=== PATIENT | female | born 1955 | race Caucasian/White ===

== ENCOUNTER → 2020-01-20 09:56 | Outpatient (CLI) | payer MEDICARE, OTHER, SELFPAY ==
[2020-01-20 10:44] LABS: Bacteria Urine None Seen
[2020-01-20 12:41] LABS: Add Manual Diff / Slide Review NO; Basophils Absolute Auto 0 /uL (0-100); Basophils Percent Auto 0.9 % (0-2); Eosinophils Absolute Auto 100 /uL (0-450); Eosinophils Percent Auto 1.4 % (2-4); Hematocrit 42.6 % (36-46); Hemoglobin 14.5 g/dL (12.0-16.0); Lymphocytes Absolute Auto 1300 /uL (1100-4500); Lymphocytes Percent Auto 31.9 % (25-40); Mean Corpuscular Hemoglobin 30.2 PG (26-34); Mean Corpuscular Volume 88.7 fL (80-100); Monocytes Absolute Auto 300 /uL (0-900); Monocytes Percent Auto 7.3 % (3-14); Neutrophils Absolute Auto 2300 /uL (1500-7000); Neutrophils Percent Auto 58.5 % (50-75); Platelet Count 177 X10^3/uL (150-400); Red Cell Distribution Width 13.5 % (11.6-14.8)
[2020-01-20 12:47] LABS: Hemoglobin A1C% w Est Avg Glu 5.6 % (4.0-6.0)
[2020-01-20 13:06] LABS: Appearance Urine UA CLEAR; Bilirubin Urine UA NEGATIVE (NEGATIVE); Color Urine UA YELLOW; Glucose Urine UA NEGATIVE (Negative); Ketones Urine UA NEGATIVE (NEGATIVE); Leukocyte Esterase Urine UA TRACE (NEGATIVE); Nitrite Urine UA NEGATIVE (Negative); Occult Blood Urine UA 1+ (Negative); Protein Urine UA NEGATIVE (Negative); Specific Gravity Urine UA 1.025 (1.000-1.035); Urobilinogen Urine UA 0.2 E.U./dL (0.2)
[2020-01-20 13:12] LABS: Prothrombin Time 11.2 SECONDS (10.1-12.7)
[2020-01-20 13:15] LABS: PTT Partial Thromboplastin Tim 34 SECONDS (26.4-36.2)
[2020-01-20 13:23] LABS: Culture Indicated Urine Specimen Cultured; RBC Urine 1-5/HPF (0-5/HPF); WBC Urine 5-10/HPF (0-5/HPF)
[2020-01-20 13:27] LABS: BUN Creatinine Ratio 22.4 (6-22); Blood Urea Nitrogen 17 mg/dL (7-17); Calcium 9.5 mg/dL (8.4-10.2); Carbon Dioxide 29 mmol/L (22-32); Chloride 109 mmol/L (98-107); Estimated Glomerular Filt Rate > 60.0 mL/min (>60); Glucose 100 mg/dL (80-110); HEMOLYSIS < 15 (0-50); Potassium 4.7 mmol/L (3.4-5.1); Sodium 140 mmol/L (137-145)
== END ==
PROVIDERS: Referring Provider Orthopaedic Surgery; Visit Provider Orthopaedic Surgery
DX: Z01.818 Encounter for other preprocedural examination (principal); Z51.81 Encounter for therapeutic drug level monitoring; R73.9 Hyperglycemia, unspecified; Z01.812 Encounter for preprocedural laboratory examination; N39.0 Urinary tract infection, site not specified
CPT/HCPCS: 36415; 80048; 81001; 83036; 85025; 85610; 85730; 87086; 93005; 93010

== ENCOUNTER → 2020-01-27 16:36 | Outpatient (CLI) | payer MEDICARE, OTHER, SELFPAY ==
[2020-01-27 16:40] LABS: Bacteria Urine None Seen
[2020-01-27 16:51] LABS: Appearance Urine UA CLEAR; Bilirubin Urine UA NEGATIVE (NEGATIVE); Color Urine UA YELLOW; Glucose Urine UA NEGATIVE (Negative); Ketones Urine UA NEGATIVE (NEGATIVE); Leukocyte Esterase Urine UA NEGATIVE (NEGATIVE); Nitrite Urine UA NEGATIVE (Negative); Occult Blood Urine UA TRACE-INTACT (Negative); Protein Urine UA NEGATIVE (Negative); Specific Gravity Urine UA 1.025 (1.000-1.035); Urobilinogen Urine UA 0.2 E.U./dL (0.2)
[2020-01-27 17:00] LABS: pH Urine UA 5.5 (4.5-8.0)
[2020-01-27 17:19] LABS: Culture Indicated Urine Cult Not Indicated; RBC Urine 0-1/HPF (0-5/HPF); Squamous Epithelial Cell Urine 0-1 /HPF (0-5/HPF); WBC Urine 0-1/HPF (0-5/HPF)
== END ==
PROVIDERS: PCP Family Medicine; Referring Provider Family Medicine; Visit Provider Family Medicine
DX: R31.29 Other microscopic hematuria (principal)
CPT/HCPCS: 81001

== ENCOUNTER → 2020-02-06 09:46 | Outpatient (CLI) | payer MEDICARE, OTHER, SELFPAY ==
[2020-02-06 11:05] LABS: COVID19 -Nasal RAPID Negative (Negative)
== END ==
PROVIDERS: PCP Family Medicine; Visit Provider Physician Assistant
DX: Z01.812 Encounter for preprocedural laboratory examination (principal); Z20.828 Contact with and (suspected) exposure to other viral communicable diseases
CPT/HCPCS: 87635; C9803

== ENCOUNTER 2020-02-07 06:04 | Day surgery (SDC) | payer MEDICARE, OTHER, SELFPAY ==
[2020-02-01 08:57] VITALS: BMI 27.3
[2020-02-07] VITALS (11 sets, daily range): BP systolic 100–123; BP diastolic 47–71; PULSE 52–89; RESP 10–18; TEMP 36.2–37.4; O2SAT 93–98; BMI 28.0
--- NOTE | 2020-02-07 | DI.RAD.S_ITS ---
PROCEDURE: XR HIP W PEL IF DONE RT 2V INDICATIONS: RIGHT TOTAL HIP OR TECHNIQUE: AP pelvis with lateral view(s) of the right hip(s). COMPARISON: None. FINDINGS: 7 spot fluoroscopic intraoperative views demonstrating right hip arthroplasty components in expected intraoperative alignment. Dictated by: Filiberto Luther M.D. on 02/07/2020 at 12:57 Approved by: Filiberto Luther M.D. on 02/07/2020 at 12:58
--- NOTE | 2020-02-07 06:00 | DI.RAD.S_ITS ---
PROCEDURE: XR HIP W PEL IF DONE RT 2V INDICATIONS: post op films TECHNIQUE: AP pelvis with lateral view(s) of the right hip(s). COMPARISON: None. FINDINGS: Bones: No fractures or dislocations. Pelvic ring appears intact. No suspicious bony lesions. Expected postoperative alignment of right hip arthroplasty. Soft tissues: The visualized bowel gas pattern is normal. No suspicious soft tissue calcifications. IMPRESSION: Expected postoperative alignment. Dictated by: Filiberto Luther M.D. on 02/07/2020 at 12:27 Approved by: Filiberto Luther M.D. on 02/07/2020 at 12:28
[2020-02-07] MEDS: PREGABALIN 75 MG CAPSULE PO (06:38)
[2020-02-07] MEDS: MELOXICAM 7.5 MG TABLET 15 MG PO (06:39)
[2020-02-07] MEDS: ACETAMINOPHEN 325 MG TABLET 975 MG PO (06:39)
[2020-02-07] MEDS: LACTATED RINGERS 1,000 ML 42 ML IV ×2 (06:55→09:11)
[2020-02-07] MEDS: VANCOMYCIN 1,000 MG/200 ML PIGGYBACK 200 MG IV (06:55)
--- NOTE | 2020-02-07 07:42 | PM.PREOP ---
Pre-operative Note COVID-19 COVID-19 status: Negative Interval Note History & Physical reviewed/Exam performed by Physician: Yes Changes to H&P: No
--- NOTE | 2020-02-07 07:43 | P.OP_ITS ---
Operative Date/Time/Diagnoses Date of procedure: 02/07/20 Time of procedure: 07:57 Pre-op diagnosis: right hip OA Post-op diagnosis: same Procedure & Clinicians Procedure: Right total hip arthroplasty anterior approach Same procedure as scheduled: Yes Indications: The patient has had progressively worsening right hip pain with radiographic changes consistent with arthritis. Non-operative management has failed and the patient has requested total hip replacement. The risks, benefits and alternatives to surgery were discussed with the patient prior to proceeding. Risks discussed included, but were not limited to, failure to relieve pain, leg length discrepancy, dislocation, stiffness, infection, nerve damage, deep venous thrombosis, pulmonary embolism, stroke, coma, heart attack, permanent paralysis and , as well as the potential need for eventual revision of the prosthetic. Surgeon: Cherie Woodruff [employer] Director: Chaim Singleton Anesthesia Type: General and Spinal Operative Notes Findings: Severe right hip osteoarthritis, good stability Closure Type: primary Specimen(s): none sent Prosthetic devices, grafts, tissues, transplants, or devices: [employer]hew 54 R3 cup, +15 screw, size 5 standard offset anthology a, +0 head Estimated Blood Loss (mL): 250 Blood products transfused: none Procedure in detail: The patient was brought to the operating room. Patient was carefully positioned in the supine position. Time-out was performed and antibiotics were given. Anesthesia was induced. She was positioned in the on the table in order to allow hyperextension of the hip. The right lower extremity was prepped and draped in a standard sterile fashion. An anterior right hip incision was made 1 fingerbreadth lateral to the anterior superior iliac spine and extended distally towards the greater trochanter. Dissection was carried out through skin and subcutaneous tissues. The skin and subcutaneous tissues were carefully injected with Lidocaine with epi. Superficial hemostasis was achiev ed. The fascia over the tensor fascia josué was defined and incised with a knife. Two Allis clamps were used to grasp the fascia. Tensor fascia josué was retracted laterally. A gelpi retractor was placed. Dissection was carried out down along the neck. The circumflex vessels were carefully identified and cauterized with the Aqua Mantis. There was good visualization of the femoral neck. A Cobra was placed superior to the neck and the gluteus fibers were carefully stripped from that superior aspect of the capsule. A 2nd retractor was placed along the inferior aspect of the neck. The rectus insertion along the capsule was partially released. A 3rd retractor that was then gently placed over the rim of the acetabulum under the rectus. Capsule was carefully incised and released from the intertrochanteric line circumferentially superior to the mid sagittal line and inferiorly to the mid sagittal line until the lesser trochanter was palpable. A tag stitch was placed both in the superior and inferior limb of the capsular insertion. Along the acetabulum capsule was also released up to the mid sagittal 12:00 position. A portion of the labrum was resected. A saw was used to perform an osteotomy at the level of the intertrochanteric line and the junction of the superior femoral neck leaving approximately 1 finger breath of residual inferior neck above the lesser trochanter. A 2nd cut was made along the femoral neck at the base of the head and a napkin ring of neck was removed. Corkscrew was placed in the femoral head and the head was removed without difficulty. Retractors were then repositioned around the acetabulum. Residual labrum was resected and additional osteophytes were removed. A reamer that was 4 mm below the templated size was placed by hand in the acetabulum and it was reamed to centralize the acetabulum. It was then reamed up to 2 under the templated size and fluoroscopy was brought in to confirm the position of the reaming and depth of reaming. I reamed 1 under the anticipated size and touched the rim with line to line reaming. A trial cup was placed and noted that it was appropriately sized and fluoroscopy confirmed position and depth. The component was open and inserted without difficulty fluoroscopic imaging was used to confirm that the cup had been adequately seated and was well positioned. It was further stabilized with a single screw. Neutral poly trial was placed. The cup was tested and noted to be stable. Attention was then directed to the femur. The femur was gently hyperextended additional capsular release was performed as needed in order to allow adequate visualization of the proximal femur with elevation of the femur. Patient was placed in a hyperextended slightly adducted position with maximum external rotation. Box osteotome was used to check for any residual neck as well as sclerotic bone along the trochanter. Accord pepper was placed in the femur. Additional broaching was performed. Canal finder was used to determine the alignment of the canal and position. Size 1 broach was placed. The canal was then appropriately broached up to the templated size as long as there was adequate stability of the broach and serial advancement of the broach without excessive impingement. Specific attention was directed at avoiding varus attempting to direct the distal aspect of the broach more anteriorly and avoiding excessive anteversion. Initially a prepped with her standard anthology. It was pretty tight with a size 4 so we open the anthology a and were able to go up to a size 5. Trial reduction showed acceptable range of motion, good stability, no posterior impingement, mandaeism of leg length and appropriate lateral shuck. I also hyperflexed the hip and checked that there was no impingement anteriorly and there was good stability with flexion, adduction and internal rotation. Marcaine and Exparel were injected. The stem was placed without difficulty. Repeat trial reduction and x-ray showed acceptable overall position, length, and no evidence of the femoral fracture. Final head was placed. Wound was meticulously irrigated with normal saline. The hip was reduced and additional Exparel and Marcaine were injected. The capsule was closed with interrupted nonabsorbable sutures. The fascia of the tensor was closed with interrupted and running Vicryl. No drain was placed. Any tensor fascia josué muscle that appeared to be contused or injured which was a minimal amount was carefully resected. Capsule around the tensor was injected with Exparel and Marcaine. The skin was closed with barbed stitches for the subcutaneous tissue and skin. We also used surgical glue. The wound was dressed sterilely. It was meticulously irrigated with normal saline. Patient was transferred to recovery room in satisfactory condition. Complications: none Post-operative Condition: stable Disposition: Acute Care Plan for aftercare: The patient will be maintained on a standard total hip replacement protocol with weight bearing as tolerated and anterior hip precautions. The patient will receive Aspirin and sequential compression devices for DVT prophylaxis. The patient will be discharged home when safe for the home environment.
[2020-02-07] MEDS: CEFAZOLIN 2 GM/100 ML FROZ.PIGGY IV (08:07)
[2020-02-07] MEDS: TRANEXAMIC ACID 1,000 MG VIAL 1000 MG INJ ×2 (08:25→11:00)
--- NOTE | 2020-02-07 08:27 | SUR.OPER ---
Supine on padded [place] table with bilateral legs secured in padded positioning boots and suspended in positioning spars, operative leg in traction per surgeon. Head on one pillow. Arm on non-operative side secured on padded armboard <90 degrees abduction. Arm on operative side padded and resting across chest then secured with tape over sheet. Padded perineal post in place per surgeon.
[2020-02-07] MEDS: BUPIVACAINE LIPOSOME 266 MG/20 ML VIAL INJ (08:40)
[2020-02-07] MEDS: BUPIVACAINE 0.25% W/ EPI (PF) 10 ML VIAL 20 ML INJ (08:43)
--- NOTE | 2020-02-07 12:19 | PC.NURSE ---
Day shift: Pt on AC unit at approx 1200 from PACU. She is A&Ox3. Denies nausea or pain. Oriented to room and call light. CMS intact and PPP. Call light in reach. Agrees to not get OOB w/o help from staff. VS WNL. RA 97%. Using I.S. as directed. Tolerating SCD's.
[2020-02-07] MEDS: LACTATED RINGERS 1,000 ML 125 ML IV ×2 (12:39→20:12)
[2020-02-07] MEDS: IBUPROFEN 400 MG TABLET PO ×3 (12:41→20:11)
--- NOTE | 2020-02-07 14:01 | PT.IIE ---
Current Diagnoses Unilateral primary osteoarthritis, right hip (02/07/20) Surgery Performed Operation Date: 02/07/20 07:45 Actual Procedures p Total Hip Arthroplasty/Anterior Approach(Right) - Cherie Woodruff MD Surgical History (Last Updated 02/01/20 @ 09:04 by Grace Guzman, CARMEN) Anesthesia History of carpal tunnel release History of section History of colonoscopy History of hysterectomy History of laparoscopy Medical History (Last Updated 02/01/20 @ 09:06 by Grace Guzman RN) Carpal tunnel syndrome Fractures (~1982) Hip pain (~1994) Microscopic hematuria Osteoarthritis Sinus bradycardia Physical Therapy Inpatient Evaluation/Re-Eval M1 PT/OT-IP Prior Functional Status Start: 02/07/20 15:39 Freq: NEEDED Status: Active Protocol: Document 02/07/20 14:01 AB (Rec: 02/07/20 15:53 AB [id number]) Medical Review Prior Functional Status Medical History Reviewed Yes Communication able to make needs known Mobility and Gait pt stated that she is independent with all mobilities and ambulation without AD Social History Household Members spouse Living Arrangements House Number of Floors (Floors) One Floor Number of Stairs To Enter/Railing? 2 steps to enter without rails Home Environment Standard Height Toilet Home Equipment Front Wheel Walker,Straight Cane,Hand Held Shower M2 PT-IP Current Condition Start: 02/07/20 15:39 Freq: NEEDED Status: Active Protocol: Document 02/07/20 14:01 AB (Rec: 02/07/20 15:53 AB [email or web address]) Physical Therapy Current Condition Current Condition Evaluation Date 02/07/20 Treatment Diagnosis s/p R VELMA anterior approach; difficulty in walking Onset Date 02/07/20 Precautions Anterior Hip Precautions No Hip Extension,No Hip External Rotation Weight Bearing Status Weight Bearing Status Weight Bear as Tolerated Allowed Weight Bearing Amount (enter % WBAT: RLE or #) (%) M3 PT-IP Subjective Start: 02/07/20 15:39 Freq: NEEDED Status: Active Protocol: Document 02/07/20 14:01 AB (Rec: 02/07/20 15:53 AB [email or web address]) Subjective Physical Therapy Visit Type Type Initial Evaluation Visit Start Time 14:01 Visit Stop Time 15:00 Total Visit Minutes 59 Number of FOOT AND ANKLE SURGEON Visits 0 Physical Therapy Visit Comments Patient Comments pt is agreeable to do PT Therapy Pain Assessment Pain Present Pain Present Denied Pain M4 PT-IP Mobility and Gait Start: 02/07/20 15:39 Freq: NEEDED Status: Active Protocol: Document 02/07/20 14:01 AB (Rec: 02/07/20 15:53 AB [email or web address]) PT-Bed Mobility Assessment Supine to Sit Supine to Sit Standby Assistance Sit to Supine Sit to Supine Standby Assistance PT-Transfer Assessment Sit to and From Stand Sit to and from Stand Contact Guard Assistance, Minimal Assistance Equipment Transfer Assistive Device Gait Belt,Front Wheeled Walker Orthotic/Prosthetic Devices or Brace: No Transfers Transfer Destination Toilet Transfer Technique ambulated using FWW Transfer Ability Level of Assist Contact Guard Assistance Comments Mobility Comments educated pt on hip precautions ant. approach. BP in supine 110/66 completed supine to sit SBA. c/o dizziness. BP: 123/ 71 . pt was able to sit on EOB SBA. completed sit to stand CGA to min A and ambulated towards the toilet using FWW CGA. completed sit to stand from the toilet CGA. ambulated towards the sink using FWW CGA and was able to maintain standing leaning against the sink CGA while cmpleting handwashing. ambulated back to the bed using fWW CGA and completed sit to supine SBA and cues. positioned in bed. BP: 110/64. call light and table placed within reach. Gait Assessment Gait Gait Assistance Required: Contact Guard Assist Distance (Feet) 25 Able to Maintain Weight Bearing Status Yes During Gait Assistive Devices Assistive Device Gait Belt,Front Wheeled Walker Orthotic/Prosthetic Devices or Brace: No Gait Deviations General Gait Pattern Antalgic,Decreased Stride Length,Decreased Feet Clearance,Step-to Gait Factors Limiting Gait Function Factors Limiting Gait Function Decreased Activity Tolerance, Decreased Strength,Limited Range of Motion,Pain Comments Gait Comments pls refer to mobility section PT-Balance Assessment Sitting Balance and Reactions Static Sitting Balance Ability Good Dynamic Sitting Balance Ability Good Standing Balance and Reactions Static Standing Balance Ability Fair Dynamic Standing Balance Ability Fair Device Used FWW M5 PT-IP Objective Assessments Start: 02/07/20 15:39 Freq: NEEDED Status: Active Protocol: Document 02/07/20 14:01 AB (Rec: 02/07/20 15:53 AB [email or web address]) Orientation Orientation/Cognition Level of Alertness Alert Orientation Name,Place,Situation Language Function Ability No Deficits Noted Safety Awareness Understands Safety Issues Memory Description Short Term Impaired Gross Range of Motion Lower Extremity ROM Assessment Within Functional Limits Strength Lower Extremity Strength Assessment Right Impaired Hip 3+/5 Knee 4-/5 Coordination Assessment Gross Coordination Gross Coordination WNL Sensation Assessment Sensation Gross Sensation WNL Muscle Tone Muscle Tone WNL Yes M6 PT-IP Treatment Start: 02/07/20 15:39 Freq: NEEDED Status: Active Protocol: Document 02/07/20 14:01 AB (Rec: 02/07/20 15:53 AB [email or web address]) Physical Therapy Treatment Education Education Provided Precautions,Weight Bearing Status,Post-Op Packet,Safety M7 PT-IP Assessment and Plan Start: 02/07/20 15:39 Freq: NEEDED Status: Active Protocol: Document 02/07/20 14:01 AB (Rec: 02/07/20 15:53 AB [email or web address]) PT Summary Assessment and Plan Potential Rehabilitation Potential Good Status of Condition at Evaluation Stable Summary Impairments Pain,ROM,Strength,Balance,Bed Mobility,Transfers,Gait, Activity Tolerance Assessment Summary pt s/o R VELMA anterior approach and just had surgery this morning. Pt requiring CGA with mobility and plans to go home with spouse to assist. spouse in room during PT session and agreed to caregiver training when appropriate. pt will need to complete stair climbing training prior to d/c home. pt stated that she is set up for outpt PT. Goals Bed Mobility Goal Independent Transfer Goal Independent,Front Wheeled Walker Gait Goal Independent,Front Wheel Walker Gait Distance 200 Other Goals up/down 2 steps using SPC /GUEST EXPERIENCE CAPTAIN CGA Days to Meet Goals 5 Frequency of Treatment Frequency Of Treatment Twice a Day Treatment Plan Physical Therapy Treatment Plan Bed Mobility Training,Transfer Training,Gait Training, Therapeutic Exercise,Balance Retraining,Post Op Education, Discharge Planning,Hot or Cold Pack,Neuromuscular Re-ed, Coordination Retraining,Manual Therapy Other Recommendations and Next Treatment ambulation, stair climbing, Focus caregiver training Recommendations To Nursing Amount of Assist Needed 1 Person Assist Discharge Recommendations PT Discharge Recommendations Home with Assistance, Outpatient PT Transportation Needs at Discharge Private Vehicle
[2020-02-07] MEDS: ACETAMINOPHEN 325 MG TABLET 650 MG PO ×2 (14:15→20:11)
[2020-02-07] MEDS: ASPIRIN EC 81 MG TABLET PO (20:11)
[2020-02-07] MEDS: DOCUSATE 100 MG CAPSULE PO (20:11)
[2020-02-08] VITALS: BP 113/64; PULSE 66; RESP 16; TEMP 36.5; O2SAT 95
[2020-02-08] MEDS: IBUPROFEN 400 MG TABLET PO ×3 (00:52→10:05)
[2020-02-08] MEDS: LACTATED RINGERS 1,000 ML 125 ML IV (04:08)
[2020-02-08 04:23] VITALS: BP 105/69; PULSE 62; RESP 16; TEMP 36.6; O2SAT 95
[2020-02-08 05:49] LABS: Hematocrit 32.7 % (36-46)
--- NOTE | 2020-02-08 07:56 | PM.PN.1 ---
Subjective Subjective Date Patient Seen: 02/08/20 Time Patient Seen: 07:56 Interval history: Doing well. Essentially no pain overnight. Was a little lightheaded initially but is now doing well. Exam Vital Signs (past 8 hours): - 02/08/20 00:00 02/08/20 04:23 Temperature 97.7 F 97.8 F Pulse Rate 66 62 Respiratory Rate 16 16 Blood Pressure 113/64 105/69 Pulse Oximetry 95 95 Oxygen Delivery Method Room Air Oxygen Flow Rate 0 Narrative Exam Narrative: Dressing dry, calfs soft bilaterally, able to do an active straight leg raise and minimal pain with hip flexion Objective Labs Result Diagrams: 02/08/20 05:30 Labs: Laboratory Results - last 24 hr 02/08/20 05:30 Hgb 11.0 L Hct 32.7 L PFSH Medical History (Updated 02/01/20 @ 09:06 by Grace Guzman RN) Carpal tunnel syndrome Fractures (~1982) Hip pain (~1994) Microscopic hematuria Osteoarthritis Sinus bradycardia Surgical History (Updated 02/01/20 @ 09:04 by Grace Guzman RN) Anesthesia History of carpal tunnel release History of section History of colonoscopy History of hysterectomy History of laparoscopy Family History (Updated 01/31/20 @ 22:04 by Diana Anguiano) Father History of heart disease Mother Breast cancer Grandfather History of heart attack Social History household members: spouse Smoking Status: Never smoker alcohol intake: current Assessment & Plan Assessment & Plan narrative: Doing well after hip replacement. She has good she is going to be discharged to home. She can be weight-bearing as tolerated. She will take her baby aspirin and follow in our office and with physical therapy.
[2020-02-08 08:31] VITALS: BP 105/61; PULSE 60; RESP 15; TEMP 36.1; O2SAT 95
[2020-02-08] MEDS: ASPIRIN EC 81 MG TABLET PO (10:05)
[2020-02-08] MEDS: DOCUSATE 100 MG CAPSULE PO (10:05)
[2020-02-08] MEDS: ACETAMINOPHEN 325 MG TABLET 650 MG PO (10:05)
--- NOTE | 2020-02-08 10:53 | PT.IPTN ---
Current Diagnoses Unilateral primary osteoarthritis, right hip (02/07/20) Surgery Performed Operation Date: 02/07/20 07:45 Actual Procedures p Total Hip Arthroplasty/Anterior Approach(Right) - Cherie Woodruff MD Physical Therapy Treatment Note M2 PT-IP Current Condition Start: 02/07/20 15:39 Freq: NEEDED Status: Discharge Protocol: Document 02/07/20 14:01 AB (Rec: 02/07/20 15:53 AB [id number]) Physical Therapy Current Condition Current Condition Evaluation Date 02/07/20 Treatment Diagnosis s/p R VELMA anterior approach; difficulty in walking Onset Date 02/07/20 Precautions Anterior Hip Precautions No Hip Extension,No Hip External Rotation Weight Bearing Status Weight Bearing Status Weight Bear as Tolerated Allowed Weight Bearing Amount (enter % WBAT: RLE or #) (%) M3 PT-IP Subjective Start: 02/07/20 15:39 Freq: NEEDED Status: Discharge Protocol: Document 02/08/20 10:33 SP (Rec: 02/08/20 13:55 SP [id number]) Subjective Physical Therapy Visit Type Type Treatment Note Visit Start Time 10:33 Visit Stop Time 10:53 Total Visit Minutes 20 Notes present and completed caregiver training with SBA- CGA provided throughout tx. Number of HEEL ATTACHER WOOD Visits 1 Physical Therapy Visit Comments Patient Comments pt agreeable to working with therapy. Patient Goals Return home with her to assist her. Therapy Pain Assessment Pain Present Pain Present Denied Pain Location r hip Description Aching,Tender,With Movement Pain Behaviors Facial Grimacing Pain Management Techniques Apply Cold,Re-positioning, Timing of Activity with Medications M4 PT-IP Mobility and Gait Start: 02/07/20 15:39 Freq: NEEDED Status: Discharge Protocol: Document 02/08/20 10:33 SP (Rec: 02/08/20 13:55 SP [id number]) PT-Bed Mobility Assessment Supine to Sit Supine to Sit Standby Assistance Scooting Scooting to Edge of Bed Standby Assistance PT-Transfer Assessment Sit to and From Stand Sit to and from Stand Standby Assistance,Contact Guard Assistance,Use of Upper Extremities Equipment Transfer Assistive Device Gait Belt,Front Wheeled Walker Transfers Transfer Destination Chair,Toilet Transfer Technique ambulated using FWW Transfer Ability Level of Assist Standby Assistance,Contact Guard Assistance,Use of Upper Extremities Comments Mobility Comments Pt inclined in bed when arrived. Reviewed post op ex: ankle pumps, heels slides, glut and quad sets, good demo. Supine> sitting with use of BUE to support RLE to EOB, scoot to EOB SBA. donned gait belt for safety assist. Sit>stand CG- SBA using FWW with educational cues for use of BUE off bed and not use of fWW with self corrections. Good 2/2 recall of anterior hip precautions. Pt ambulated further into hallway approx 220ft using FWW stagger step patterning to stay within precautions of no excessive hip ext on R LE from bed to stairs, around nursing station and back to room bathroom. Pt completed 3 stairs using R SPC only needed to assimulate entering house with no HRs, she has a SPC at home. Pt completed Sit<> stand from toilet with use of grab bar for self support and use of FWW, self hygiene and pant mgt, was SBA for safety, not needed. Pt walked to the sink, washed hands sBA, stable and back to chair approx 15 ft total and good hand placement for slow descent in to chair. Pt had call light and all needs in reach, in room when left. Pt is ok to return home with her to assist her when medically cleared and is set up for outpt therapy. Gait Assessment Gait Gait Assistance Required: Contact Guard Assist Distance (Feet) 220 Able to Maintain Weight Bearing Status Yes During Gait Assistive Devices Assistive Device Gait Belt,Front Wheeled Walker Orthotic/Prosthetic Devices or Brace: No Gait Deviations General Gait Pattern Antalgic,Decreased Stride Length,Decreased Feet Clearance,Step-to Gait Factors Limiting Gait Function Factors Limiting Gait Function Decreased Activity Tolerance, Decreased Strength,Limited Range of Motion,Poor Safety Awareness Comments Gait Comments pls refer to mobility section Stair Climbing Assessment Evaluation Level of Assist On Stairs Contact Guard Assistance,1 Person Assistance Devices Stair Climbing Assistive Devices Straight Cane Technique/Endurance Stair Climbing Direction Ascend and Descend Stair Climbing Technique Step to Step Number of Steps Climbed 3 Stair Climbing Set # Repetitions (reps) 1 Comments Stair Climbing Comments See mobility gait for details. PT-Balance Assessment Sitting Balance and Reactions Static Sitting Balance Ability Good Dynamic Sitting Balance Ability Good Standing Balance and Reactions Static Standing Balance Ability Fair Dynamic Standing Balance Ability Fair Device Used FWW M5 PT-IP Objective Assessments Start: 02/07/20 15:39 Freq: NEEDED Status: Discharge Protocol: Document 02/07/20 14:01 AB (Rec: 02/07/20 15:53 AB [id number]) Orientation Orientation/Cognition Level of Alertness Alert Orientation Name,Place,Situation Language Function Ability No Deficits Noted Safety Awareness Understands Safety Issues Memory Description Short Term Impaired Gross Range of Motion Lower Extremity ROM Assessment Within Functional Limits Strength Lower Extremity Strength Assessment Right Impaired Hip 3+/5 Knee 4-/5 Coordination Assessment Gross Coordination Gross Coordination WNL Sensation Assessment Sensation Gross Sensation WNL Muscle Tone Muscle Tone WNL Yes M6 PT-IP Treatment Start: 02/07/20 15:39 Freq: NEEDED Status: Discharge Protocol: Document 02/08/20 10:33 SP (Rec: 02/08/20 13:55 SP [id number]) Physical Therapy Treatment Exercises Exercises Ankle Pumps,Gluteal Sets,Quad Sets,Heel Slides Education Education Provided Precautions,Weight Bearing Status,Post-Op Packet,Safety M7 PT-IP Assessment and Plan Start: 02/07/20 15:39 Freq: NEEDED Status: Discharge Protocol: Document 02/08/20 10:33 SP (Rec: 02/08/20 13:55 SP [id number]) PT Summary Assessment and Plan Potential Rehabilitation Potential Good Status of Condition at Evaluation Stable Summary Impairments Pain,ROM,Strength,Balance,Bed Mobility,Transfers,Gait, Activity Tolerance Progress Towards Goals Progressing Toward Goals Assessment Summary Pt good recall and demonstration of R hip precautions, SBA during bed mobiltiy, sit<> stand and gait usign FWW with cuing x1 for proper hand placement for safety with good carry over rest of tx, CGA during stair mgt completed using SPC in RUE to assimulate no HR at home. PT walked further distance 220 ft no rest break needed, occassinoal cuing for upright posture and UE WB as needed for assist strength and safety. Pt is pt stated that she is set up for outpt PT. Pt is ok to return home with to assist her when medically cleared. Goals Bed Mobility Goal Independent Transfer Goal Independent,Front Wheeled Walker Gait Goal Independent,Front Wheel Walker Gait Distance 200 Other Goals up/down 2 steps using SPC /[employer]OTOR TRANSPORT INSPECTOR CGA Days to Meet Goals 5 Frequency of Treatment Frequency Of Treatment Twice a Day Treatment Plan Physical Therapy Treatment Plan Bed Mobility Training,Transfer Training,Gait Training, Therapeutic Exercise,Balance Retraining,Post Op Education, Discharge Planning,Hot or Cold Pack,Neuromuscular Re-ed, Coordination Retraining,Manual Therapy Other Recommendations and Next Treatment Ther ex and distance gait Focus Recommendations To Nursing Amount of Assist Needed Standby Assistance Discharge Recommendations PT Discharge Recommendations Home with Assistance, Outpatient PT Transportation Needs at Discharge Private Vehicle
== END 2020-02-08 11:16 | disposition home or self-care (01) ==
LOC: OR 06:06 → AC 06:07
PROVIDERS: PCP Family Medicine; Referring Provider Family Medicine; Visit Provider Orthopaedic Surgery
PROC: (CPT 27130; principal; 2020-02-07 07:45)
DX: M16.11 Unilateral primary osteoarthritis, right hip (principal)
CPT/HCPCS: 27130; 36415; 73502; 76000; 85014; 85018; 97116; 97161; 97530; C1776; C9290; J0690; J1100; J2250; J2274; J2405; J2704; J3010

== ENCOUNTER → 2023-10-13 15:22 | Outpatient (CLI) | payer MEDICARE, OTHER, SELFPAY ==
[2020-02-07 12:51] VITALS: BMI 28.0
[2023-10-13 16:24] LABS: Add Manual Diff / Slide Review NO; Basophils Absolute Auto 0 /uL (0-100); Basophils Percent Auto 0.5 % (0-2); Eosinophils Absolute Auto 1800 /uL (0-450); Hematocrit 41.5 % (36-46); Hemoglobin 14.1 g/dL (12.0-16.0); Lymphocytes Absolute Auto 2000 /uL (1100-4500); Lymphocytes Percent Auto 21.4 % (25-40); Mean Corpuscular HGB Conc 33.9 % (30-36); Mean Corpuscular Hemoglobin 30.2 PG (26-34); Mean Corpuscular Volume 88.9 fL (80-100); Monocytes Absolute Auto 500 /uL (0-900); Monocytes Percent Auto 4.9 % (3-14); Neutrophils Absolute Auto 4900 /uL (1500-7000); Neutrophils Percent Auto 53.2 % (50-75); Platelet Count 203 X10^3/uL (150-400); Red Blood Cell Count 4.67 X10^6/uL (4.0-5.2); Red Cell Distribution Width 13.1 % (11.6-14.8); White Blood Cell Count 9.2 X10^3/uL (4.5-11.0)
== END ==
LOC: LAB 15:23
PROVIDERS: PCP Family Medicine; Referring Provider Physician Assistant; Visit Provider Physician Assistant
DX: R19.7 Diarrhea, unspecified (principal)
CPT/HCPCS: 36415; 85025

== ENCOUNTER → 2023-10-14 12:15 | Outpatient (CLI) | payer MEDICARE, OTHER, SELFPAY ==
[2020-02-07 12:51] VITALS: BMI 28.0
[2023-10-14 14:38] LABS: Clostridium Difficile Tox PCR Negative for C. diff (Negative)
== END ==
PROVIDERS: PCP Family Medicine; Referring Provider Physician Assistant; Visit Provider Physician Assistant
DX: R19.7 Diarrhea, unspecified (principal)
CPT/HCPCS: 87045; 87493

== ENCOUNTER → 2023-10-29 11:30 | Outpatient (CLI) | payer MEDICARE, OTHER, SELFPAY ==
[2020-02-07 12:51] VITALS: BMI 28.0
[2023-10-29 12:12] LABS: Add Manual Diff / Slide Review NO; Basophils Absolute Auto 0 /uL (0-100); Basophils Percent Auto 0.9 % (0-2); Eosinophils Absolute Auto 200 /uL (0-450); Eosinophils Percent Auto 3.4 % (2-4); Hematocrit 40.9 % (36-46); Hemoglobin 13.7 g/dL (12.0-16.0); Lymphocytes Absolute Auto 1400 /uL (1100-4500); Lymphocytes Percent Auto 28.4 % (25-40); Mean Corpuscular HGB Conc 33.6 % (30-36); Mean Corpuscular Hemoglobin 29.9 PG (26-34); Mean Corpuscular Volume 88.9 fL (80-100); Monocytes Absolute Auto 400 /uL (0-900); Monocytes Percent Auto 7.7 % (3-14); Neutrophils Absolute Auto 2900 /uL (1500-7000); Neutrophils Percent Auto 59.6 % (50-75); Platelet Count 204 X10^3/uL (150-400); Red Cell Distribution Width 13.4 % (11.6-14.8); White Blood Cell Count 4.9 X10^3/uL (4.5-11.0)
== END ==
PROVIDERS: PCP Family Medicine; Referring Provider Physician Assistant; Visit Provider Physician Assistant
DX: D72.10 Eosinophilia, unspecified (principal)
CPT/HCPCS: 36415; 85025

== ENCOUNTER → 2024-11-15 16:35 | Outpatient (CLI) | payer MEDICARE, OTHER, SELFPAY ==
[2020-02-07 12:51] VITALS: BMI 28.0
[2024-11-15 17:39] LABS: Add Manual Diff / Slide Review NO; Hematocrit 41.0 % (36-46); Hemoglobin 14.2 g/dL (12.0-16.0); Lymphocytes Absolute Auto 1500 /uL (1100-4500); Mean Corpuscular HGB Conc 34.6 % (30-36); Mean Corpuscular Hemoglobin 30.0 PG (26-34); Mean Corpuscular Volume 86.9 fL (80-100); Platelet Count 202 X10^3/uL (150-400)
[2024-11-15 18:11] LABS: HEMOLYSIS < 15 (0-50); Iron 88 ug/dL (37-170)
[2024-11-15 18:15] LABS: Alanine Aminotransferase 18 IU/L (<35); Albumin 4.5 g/dL (3.5-5.0); Albumin Globulin Ratio 1.8 (1.0-2.8); Alkaline Phosphatase 64 U/L (38-126); Blood Urea Nitrogen 18 mg/dL (7-17); Calcium 9.6 mg/dL (8.4-10.2); Carbon Dioxide 23 mmol/L (22-32); Chloride 107 mmol/L (98-107); Cholesterol 229 mg/dL (140-199); Estimated Glomerular Filt Rate > 60 mL/min (>60); Globulin 2.5 g/dL (1.7-4.1); Glucose 91 mg/dL (70-99); HDL Cholesterol 93 mg/dL (40-60); HEMOLYSIS < 15 (0-50); Potassium 4.4 mmol/L (3.4-5.1); Sodium 139 mmol/L (137-145); Total Protein 7.0 g/dL (6.3-8.2); Triglycerides 118 mg/dL (35-150)
[2024-11-15 18:22] LABS: Percent Iron Saturation 28 % (15-50); Total Iron Binding Capacity 317 ug/dL (265-497); Transferrin 283 mg/dL (206-381)
[2024-11-15 18:42] LABS: TSH w/ Reflex to FT4 0.16 uIU/mL (0.47-4.68)
[2024-11-15 19:07] LABS: Free T4, Direct Thyroxine 0.88 ng/dL (0.78-2.19)
== END ==
PROVIDERS: PCP Family Medicine; Referring Provider Family Medicine; Visit Provider Family Medicine
DX: Z00.00 Encounter for general adult medical examination without abnormal findings (principal); L65.9 Nonscarring hair loss, unspecified; I10 Essential (primary) hypertension
CPT/HCPCS: 80053; 80061; 83540; 83550; 84439; 84443; 85025